=== PATIENT | female | born 1985 | race Caucasian/White ===

== ENCOUNTER → 2020-09-15 12:10 | Outpatient (BNVA) | payer OTHER, SELFPAY | PROVIDERS: Visit Provider Family Medicine | DX: R53.83 Other fatigue (principal); K05.219 Aggressive periodontitis, localized, unspecified severity | CPT/HCPCS: 82607; 83540; 84443 ==

== ENCOUNTER 2020-09-20 17:48 | Emergency (ER) | payer OTHER, SELFPAY ==
[2020-09-20] VITALS (25 sets, daily range): BP systolic 127–148; BP diastolic 76–97; PULSE 84–105; RESP 13–24; TEMP 36.6–37.1; O2SAT 91–100; BMI 29.2
--- NOTE | 2020-09-20 18:29 | XRR_ITS ---
PROCEDURE INFORMATION: Exam: XR Chest, 1 View Exam date and time: 09/20/2020 6:32 PM Age: 35 years old Clinical indication: Dyspnea; Additional info: Seizure TECHNIQUE: Imaging protocol: XR of the chest Views: 1 view. COMPARISON: No relevant prior studies available. FINDINGS: Lungs: There is interstitial prominence compatible with fibrosis, bronchitis, viral pneumonitis or mild interstitial edema. There is also mild hazy opacity in the lungs concerning for mild airspace edema or pneumonitis including COVID pneumonia. There is no lobar consolidation. Pleural space: Unremarkable. No pleural effusion. No pneumothorax. Heart/Mediastinum: Unremarkable. No cardiomegaly. Bones/joints: No acute abnormality. XR/XR chest 1V portable [id number] IMPRESSION: 1. There is interstitial prominence compatible with fibrosis, bronchitis, viral pneumonitis or mild interstitial edema. 2. There is also mild hazy opacity in the lungs concerning for mild airspace edema or pneumonitis including COVID pneumonia.
--- NOTE | 2020-09-20 18:30 | ECG_ITS ---
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
--- NOTE | 2020-09-20 18:54 | CTR_ITS ---
PROCEDURE INFORMATION: Exam: CT Head Without Contrast Exam date and time: 09/20/2020 7:41 PM Age: 35 years old Clinical indication: Injury or trauma; Blunt trauma (contusions or hematomas); With loss of consciousness; Loss of consciousness for 30 minutes or less; Patient HX: Syncope vs seizure w fall C/O BERRIOS and neck pain TECHNIQUE: Imaging protocol: Computed tomography of the head without contrast. Radiation optimization: All CT scans at this facility use at least one of these dose optimization techniques: automated exposure control; mA and/or kV adjustment per patient size (includes targeted exams where dose is matched to clinical indication); or iterative reconstruction. COMPARISON: No relevant prior studies available. RADIATION DOSE METRICS: Total DLP (mGy-cm): 753.5 FINDINGS: Brain: Normal. No hemorrhage. Unremarkable white matter. No mass effect. Cerebral ventricles: No ventriculomegaly. Bones/joints: Unremarkable. No acute fracture. Paranasal sinuses: There is mild mucosal thickening in the sinuses. No air-fluid levels. Mastoid air cells: Visualized mastoid air cells are well aerated. Soft tissues: Unremarkable. CT/CT head wo con* [id number] IMPRESSION: No acute intracranial abnormality. Radiation Dose CTDIVOL = (mGy): DLP = 753.5 (mGy-cm)
--- NOTE | 2020-09-20 18:54 | CTR_ITS ---
PROCEDURE INFORMATION: Exam: CT Cervical Spine Without Contrast Exam date and time: 09/20/2020 7:41 PM Age: 35 years old Clinical indication: Injury or trauma; Blunt trauma; Patient HX: Syncope vs seizure w fall C/O BERRIOS and neck pain; Additional info: Fall, neck pain TECHNIQUE: Imaging protocol: Computed tomography images of the cervical spine without contrast. Radiation optimization: All CT scans at this facility use at least one of these dose optimization techniques: automated exposure control; mA and/or kV adjustment per patient size (includes targeted exams where dose is matched to clinical indication); or iterative reconstruction. COMPARISON: No relevant prior studies available. RADIATION DOSE METRICS: Total DLP (mGy-cm): 532.44 FINDINGS: Bones/joints: No acute fracture. Normal alignment. Discs/Spinal canal/Neural foramina: No significant disc protrusion. No severe spinal canal stenosis. No significant neural foraminal narrowing. Soft tissues: Unremarkable. Lungs: Lung apices are normal. CT/CT cervical spin wo con* [id number] IMPRESSION: No acute findings. Radiation Dose CTDIVOL = (mGy): DLP = 532.44 (mGy-cm)
--- NOTE | 2020-09-20 19:09 | ED_ITS ---
HPI - Seizure General: Chief Complaint: Seizure Stated Complaint: seizure Time Seen by Provider: 09/20/20 18:14 Source: patient and family (spouse) Mode of arrival: ambulatory Limitations: no limitations History of Present Illness: HPI Narrative: Patient was at home doing laundry when she said that was last thing she recalls. Her spouse who is in the room stated that the children who run down to get him and when he arrived she was having a generalized tonic-clonic seizure. Whole episode lasted less than 1 minute and probably is more like 45 seconds. She has no prior history of seizures, has not been on well before today. No headache before no fever, no cough, no chest pain. MD complaint: seizure Onset (ago): hour(s) (1) Description of Episode: loss of consciousness and tonic-clonic movement Duration of episode: 45 -: second(s) Witnessed: Yes - by Bystander (spouse) Trauma: No Seizure History: No Place: Home Possible Precipitating Event: none Associated symptoms: Deny chest pain, chills, confusion, cough, diaphoresis, fever(s), anorexia, malaise, rash, short of breath or weakness Treatments prior to arrival: none Review of Systems General: Reports: 10 or more systems reviewed and unremarkable except in HPI and below Const: Denies: fever(s), chills, malaise or diaphoresis Eyes: Denies: change in vision or blurry vision ENMT: Denies: throat pain, enlarged tonsils, odynophagia, hoarseness, mouth pain or swelling of lips/tongue Card: Denies: chest pain Resp: Denies: dyspnea, productive cough or non-productive cough GI: Denies: abdominal pain, nausea or vomiting : Denies: flank pain, difficulty voiding, dysuria, urinary frequency, urinary urgency or urinary hesitancy Musc: Denies: neck pain, back pain or extremity swelling Skin/Breast: Denies: rash, pruritus or erythema Neuro: Denies: confusion Endo: Denies: polyuria, polydipsia or tired all the time PFSH ED PFSH: Medical History (Reviewed 09/20/20 @ 23:55 by Kar Castillo MD, [facility] Anxiety Binge eating disorder Depression Ovarian cyst PTSD (post-traumatic stress disorder) TMJ (dislocation of temporomandibular joint) Surgical History (Reviewed 09/20/20 @ 23:55 by Kar Castillo MD, [facility]) H/O: hysterectomy History of bowel resection History of ERCP History of hernia repair Hx of cholecystectomy Social History (Reviewed 09/20/20 @ 23:55 by Kar Castillo MD, [facility] Smoking and tobacco status: current every day smoker Marital status: / Physical Exam Const: COMMON NORMALS: no acute distress, average body habitus, patient oriented x3, no limitations, healthy appearing, alert and well nourished HENMT: COMMON NORMALS: normocephalic, atraumatic and moist oral mucous membranes HEAD & SCALP: normocephalic and atraumatic Eye: COMMON NORMALS: Equal, round and reactive pupils present, EOMs intact bilaterally, conjunctivae normal and no scleral icterus CONJUNCTIVA: Yes conjunctivae normal PUPIL: Yes Equal, round and reactive pupils present Neck/C-Spine: COMMON NORMALS: full ROM, supple, no meningeal signs, no JVD and No carotid bruits CERVICAL SPINE: Yes cervical ROM abnormal extension decreased, Yes pain with cervical ROM, No Cervical spine tenderness, Yes Paracervical muscle tenderness and Yes Paracervical spasm Chest: COMMONS NORMALS: normal inspection of the chest and normal palpation of entire chest wall Resp: COMMON NORMALS: normal respiratory effort, No retractions, No use of accessory muscles, clear to auscultation bilaterally and percussion normal AUSCULTATION: clear to auscultation bilaterally PERCUSSION: percussion normal Cardio: COMMON NORMALS: no JVD, regular rate, regular rhythm, S1 normal heart sound present, S2 normal heart sound present, No gallops present (Cardio), No clicks present (Cardio), No murmurs present (Cardio), No rub (Cardio) and Peripheral pulses 2+ throughout RATE: regular rate RHYTHM: regular rhythm HEART SOUNDS: S1 normal heart sound present and S2 normal heart sound present PERIPHERAL PULSES: Peripheral pulses 2+ throughout GI: COMMON NORMALS: Normal to inspection, nondistended, normoactive bowel sounds present, Soft to palpation, non-tender, No hepatosplenomegaly present, no masses and no bruits PALPATION: Yes Soft to palpation and Yes No hepatosplenomegaly present Extremity: COMMON NORMALS: normal to inspection, full ROM, capillary refill normal, no calf tenderness and no pedal edema Neuro: COMMON NORMALS: patient oriented x3 SENSORIUM/ORIENTATION: Yes alert MENINGEAL SIGNS: Yes no meningeal signs Skin: COMMON NORMALS: no rashes or lesions noted, no wounds, turgor normal, no jaundice, no petechiae and no mottling GENERAL SKIN EXAM: no rashes or lesions noted and turgor normal Course ED course: Patient who had a syncopal episode of seizure today that lasted less than a minute. Evaluation in the ED was unremarkable other than chest x- ray suggestive of viral pneumonia. A rapid Covid swab was negative, and a PCR test was sent out. She is discharged home with no new orders. Vital Signs: Vital signs: Vital Signs Temperature 98.7 F 09/20/20 22:34 Pulse Rate 84 09/20/20 22:34 Respiratory Rate 18 09/20/20 22:34 Blood Pressure 134/76 09/20/20 22:34 Pulse Oximetry 99 09/20/20 22:34 MDM - Seizure MDM Narrative: Medical decision making narrative: 35-year-old female patient who had a seizure earlier today. She does not have a seizure history and no repeat seizures. Evaluation in the ED was unremarkable. She is advised that for single seizure it is not recommended to start an tiepileptics or to do a big work-up. She is advised that she has repeated seizures she will require more investigations including EEG and possible antiepileptics. She had neck pain and a C-spine CT was negative for acute fracture or dislocation. Medical Records: Attestation: I reviewed the patient's medical records. Lab Data: Attestation: I reviewed the patient's lab results. Labs: Lab Results 09/20/20 09/20/20 09/20/20 Range/Units 19:07 19:07 20:00 WBC 8.2 (4.0-10.0) 10^3/ uL RBC 3.90 L (4.1-5.3) 10^6/u L Hgb 12.0 (11.5-15.3) g/dL Hct 35.8 L (37.0-47.0) % MCV 91.8 (81-99) fL MCH 30.8 (28.0-34.0) pg MCHC 33.5 (30.0-36.0) g/dL RDW 12.9 (12.1-15.1) % Plt Count 294 (130-400) 10^3/c mm MPV 10.1 (7.4-10.4) fL Neut % (Auto) 73.1 % Lymph % (Auto) 19.8 % [place] % (Auto) 6.1 % Eos % (Auto) 0.5 % Baso % (Auto) 0.4 % Neut # (Auto) 5.96 (1.8-7.7) 10^3/u L Lymph # (Auto) 1.6 (0.8-4.8) 10^3/u L [place] # (Auto) 0.5 (0.2-0.9) 10^3/u L Eos # (Auto) 0.0 (0.0-0.8) 10^3/u L Baso # (Auto) 0.0 (0.0-0.1) 10^3/u L Nucleated RBC % (a uto) 0 % Nucleated RBCs # 0.0 /100WBC Sodium 141 (136-145) mmol/L Potassium 3.7 (3.5-5.1) mmol/L Chloride 107 (98-107) mmol/L Carbon Dioxide 26 (22-29) mmol/L Anion Gap 11.7 (5-19) BUN 7 (6-20) mg/dL Creatinine 0.6 (0.5-0.9) mg/dL GFR Calculation 114.4 (90-130) mL/min Glucose 98 (65-115) mg/dL Calculated Osmolal ity 290 (285-295) mOsm/k g Calcium 9.0 (8.5-10.5) mg/dL Total Bilirubin 0.4 (0.15-1.2) mg/dL AST 30 (0-32) U/L ALT 31 (0-33) U/L Alkaline Phosphata se 67 (35-105) IU/L Creatine Kinase 100 (26-192) U/L C-Reactive Protein 0.7 (0.0-4.9) mg/L Total Protein 6.9 (6.6-8.7) g/dL Albumin 4.1 (3.5-5.2) g/dL Globulin 2.8 (1.3-4.6) g/dL Lipase 21 (13-60) U/L TSH 1.43 (0.27-4.20) uIU/ mL HCG, Qual Negative (Negative) Urine Color (Yellow) Urine Appearance (CLEAR) Urine pH (5-7) Ur Specific Gravit y (1.005-1.030) Urine Protein (Negative) Urine Glucose (UA) (Normal) Urine Ketones (Negative) Urine Blood (Negative) Urine Nitrate (Negative) Urine Bilirubin (Negative) Urine Urobilinogen (Negative) mg/dL Ur Leukocyte Celeste ase (Negative) Urine RBC (0-2) /hpf Urine WBC (0-5) /hpf Ur Squamous Epith Cells (0-5) /hpf Amorphous Sediment Urine Bacteria (NONE) /hpf Urine Opiates Scre en (Negative) ng/mL Ur Barbiturates Sc reen (Negative) ng/mL Ur Phencyclidine S crn (Negative) ng/mL Ur Amphetamines Sc reen (Negative) ng/mL U Benzodiazepines Scrn (Negative) ng/mL Urine Cocaine Scre en (Negative) ng/mL U Marijuana (THC) Screen (Negative) ng/mL Ethyl Alcohol < 10 (0-10) mg/dL SARS-CoV-2 Ag (Rap id) (Negative) 09/20/20 09/20/20 09/20/20 Range/Units 20:00 20:00 21:04 WBC (4.0-10.0) 10^3/ uL RBC (4.1-5.3) 10^6/u L Hgb (11.5-15.3) g/dL Hct (37.0-47.0) % MCV (81-99) fL MCH (28.0-34.0) pg MCHC (30.0-36.0) g/dL RDW (12.1-15.1) % Plt Count (130-400) 10^3/c mm MPV (7.4-10.4) fL Neut % (Auto) % Lymph % (Auto) % [place] % (Auto) % Eos % (Auto) % Baso % (Auto) % Neut # (Auto) (1.8-7.7) 10^3/u L Lymph # (Auto) (0.8-4.8) 10^3/u L [place] # (Auto) (0.2-0.9) 10^3/u L Eos # (Auto) (0.0-0.8) 10^3/u L Baso # (Auto) (0.0-0.1) 10^3/u L Nucleated RBC % (a uto) % Nucleated RBCs # /100WBC Sodium (136-145) mmol/L Potassium (3.5-5.1) mmol/L Chloride (98-107) mmol/L Carbon Dioxide (22-29) mmol/L Anion Gap (5-19) BUN (6-20) mg/dL Creatinine (0.5-0.9) mg/dL GFR Calculation (90-130) mL/min Glucose (65-115) mg/dL Calculated Osmolal ity (285-295) mOsm/k g Calcium (8.5-10.5) mg/dL Total Bilirubin (0.15-1.2) mg/dL AST (0-32) U/L ALT (0-33) U/L Alkaline Phosphata se (35-105) IU/L Creatine Kinase (26-192) U/L C-Reactive Protein (0.0-4.9) mg/L Total Protein (6.6-8.7) g/dL Albumin (3.5-5.2) g/dL Globulin (1.3-4.6) g/dL Lipase (13-60) U/L TSH (0.27-4.20) uIU/ mL HCG, Qual (Negative) Urine Color Yellow (Yellow) Urine Appearance Hazy A (CLEAR) Urine pH 6 (5-7) Ur Specific Gravit y 1.020 (1.005-1.030) Urine Protein Neg (Negative) Urine Glucose (UA) Norm (Normal) Urine Ketones Negative (Negative) Urine Blood Neg (Negative) Urine Nitrate Negative (Negative) Urine Bilirubin Neg (Negative) Urine Urobilinogen Norm (Negative) mg/dL Ur Leukocyte Celeste ase Negative (Negative) Urine RBC 0-4 H (0-2) /hpf Urine WBC None (0-5) /hpf Ur Squamous Epith Cells 5-10 H (0-5) /hpf Amorphous Sediment Not Reportable Urine Bacteria 1+ H (NONE) /hpf Urine Opiates Scre en Negative (Negative) ng/mL Ur Barbiturates Sc reen Negative (Negative) ng/mL Ur Phencyclidine S crn Negative (Negative) ng/mL Ur Amphetamines Sc reen Negative (Negative) ng/mL U Benzodiazepines Scrn Positive H (Negative) ng/mL Urine Cocaine Scre en Negative (Negative) ng/mL U Marijuana (THC) Screen Positive H (Negative) ng/mL Ethyl Alcohol (0-10) mg/dL SARS-CoV-2 Ag (Rap id) Negative (Negative) Imaging Data^: Other CT: Radiologist's impression: [address] [address] [address] Scan Report Signed Patient: Meera Guevara #: [id number] : 1985Acct#:[id number] Age/Sex: 35 / FADM Date: 09/20/20 Loc: ERRoom/Bed: Attending Dr: Ordering Provider/Ordering MD: Kar Castillo MD, [facility] Date of Service: 09/20/20 Procedure(s): CT cervical spin wo con* [id number] Accession Number(s): [id number] Report Number: [id number] PROCEDURE INFORMATION: Exam: CT Cervical Spine Without Contrast Exam date and time: 09/20/2020 7:41 PM Age: 35 years old Clinical indication: Injury or trauma; Blunt trauma; Patient HX: Syncope vs seizure w fall C/O BERRIOS and neck pain; Additional info: Fall, neck pain TECHNIQUE: Imaging protocol: Computed tomography images of the cervical spine without contrast. Radiation optimization: All CT scans at this facility use at least one of these dose optimization techniques: automated exposure control; mA and/or kV adjustment per patient size (includes targeted exams where dose is matched to clinical indication); or iterative reconstruction. COMPARISON: No relevant prior studies available. RADIATION DOSE METRICS: Total DLP (mGy-cm): 532.44 FINDINGS: Bones/joints: No acute fracture. Normal alignment. Discs/Spinal canal/Neural foramina: No significant disc protrusion. No severe spinal canal stenosis. No significant neural foraminal narrowing. Soft tissues: Unremarkable. Lungs: Lung apices are normal. CT/CT cervical spin wo con* [id number] IMPRESSION: No acute findings. Radiation Dose CTDIVOL = (mGy): DLP = 532.44 (mGy-cm) Dictated By:Kyung Wong Signed By:Tomanek,JoanSigned Date/Time:09/20/202006 DD/ 05 CXR: Radiologist's impression: [facility] [address] [place] [address] XRay Report Signed Patient: Meera Guevara #: [id number] : 1985Acct#:[id number] Age/Sex: 35 / FADM Date: 09/20/20 Loc: ERRoom/Bed: Attending Dr: Ordering Provider/Ordering MD: Kar Castillo MD, [facility] Date of Service: 09/20/20 Procedure(s): XR chest 1V portable [id number] Accession Number(s): [id number] Report Number: [id number] PROCEDURE INFORMATION: Exam: XR Chest, 1 View Exam date and time: 09/20/2020 6:32 PM Age: 35 years old Clinical indication: Dyspnea; Additional info: Seizure TECHNIQUE: Imaging protocol: XR of the chest Views: 1 view. COMPARISON: No relevant prior studies available. FINDINGS: Lungs: There is interstitial prominence compatible with fibrosis, bronchitis, viral pneumonitis or mild interstitial edema. There is also mild hazy opacity in the lungs concerning for mild airspace edema or pneumonitis including COVID pneumonia. There is no lobar consolidation. Pleural space: Unremarkable. No pleural effusion. No pneumothorax. Heart/Mediastinum: Unremarkable. No cardiomegaly. Bones/joints: No acute abnormality. XR/XR chest 1V portable [id number] IMPRESSION: 1. There is interstitial prominence compatible with fibrosis, bronchitis, viral pneumonitis or mild interstitial edema. 2. There is also mild hazy opacity in the lungs concerning for mild airspace edema or pneumonitis including COVID pneumonia. Dictated By:Kyung Wong Signed By:Rachel Wong Date/Time:09/20/20 191 DD/ 190 CT Head: Radiologist's impression: [facility] [address] [place] [address]. [place] [address] CT Scan Report Signed Patient: Meera Guevara #: [id number] : 1985Acct#:[id number] Age/Sex: 35 / FADM Date: 09/20/20 Loc: ERRoom/Bed: Attending Dr: Ordering Provider/Ordering MD: Kar Castillo MD, [facility] Date of Service: 09/20/20 Procedure(s): CT head wo con* [id number] Accession Number(s): [id number] Report Number: [id number] PROCEDURE INFORMATION: Exam: CT Head Without Contrast Exam date and time: 09/20/2020 7:41 PM Age: 35 years old Clinical indication: Injury or trauma; Blunt trauma (contusions or hematomas); With loss of consciousness; Loss of consciousness for 30 minutes or less; Patient HX: Syncope vs seizure w fall C/O BERRIOS and neck pain TECHNIQUE: Imaging protocol: Computed tomography of the head without contrast. Radiation optimization: All CT scans at this facility use at least one of these dose optimization techniques: automated exposure control; mA and/or kV adjustment per patient size (includes targeted exams where dose is matched to clinical indication); or iterative reconstruction. COMPARISON: No relevant prior studies available. RADIATION DOSE METRICS: Total DLP (mGy-cm): 753.5 FINDINGS: Brain: Normal. No hemorrhage. Unremarkable white matter. No mass effect. Cerebral ventricles: No ventriculomegaly. Bones/joints: Unremarkable. No acute fracture. Paranasal sinuses: There is mild mucosal thickening in the sinuses. No air-fluid levels. Mastoid air cells: Visualized mastoid air cells are well aerated. Soft tissues: Unremarkable. CT/CT head wo con* [id number] IMPRESSION: No acute intracranial abnormality. Radiation Dose CTDIVOL = (mGy): DLP = 753.5 (mGy-cm) Dictated By:Kyung Wong Signed By:Rachel Wong Date/Time:09/20/201999 DD/ 58 EKG Data^: EKG 1: Attestation: I personally reviewed and interpreted this EKG as follows: EKG interpretation date: 09/20/20 EKG interpretation time: 19:53 Prior EKG tracings: not available for review Interpretation: Normal sinus rhythm. Heart rate 90 bpm. Normal axis. No ST changes. Discharge Plan Discharge Patient Disposition: Home Clinical Impression: Seizure Condition: Stable Prescriptions: Continued dextroamphetamine-amphetamine [Adderall] 20 mg tablet 20 mg PO BID 30 Days Qty: 60 RF: 0 amoxicillin 875 mg tablet 875 mg PO BID@ RF: 0 prazosin 2 mg capsule 2 mg PO BID@ RF: 0 Wellbutrin XL 300 mg tablet extended release 24 hr 300 mg PO QAM@0900 RF: 0 Tylenol 325 mg Tablet 325 mg PO QID PRN (Reason: Pain) RF: 0 ibuprofen 200 mg Tablet 200 mg PO Q6H PRN (Reason: Pain) RF: 0 Discharge Orders: Discharge ED (Routine); Ordered 09/20/20 Ordered By: Kar Castillo Discharge Diet: As Directed Discharge Activity: Resume usual activity Patient Instructions: Seizures Activity Restrictions/Additional Instructions: Return for any new or worsening symptoms. Follow-up with your primary care provider within 3 days. If you have any repeat seizures you may need to be started on seizure medica tions and have further test done. You will be contacted with the results of your Covid test. Coding Level of Care Code ED Hog Dropper for Ramana Sheehan
[2020-09-20 19:30] LABS: Basophils % 0.4 %; Eosinophils % 0.5 %; Hematocrit 35.8 % (37.0-47.0); Lymphocytes # 1.6 10^3/uL (0.8-4.8); Lymphocytes % 19.8 %; Mean Corpuscular HGB Conc 33.5 g/dL (30.0-36.0); Mean Corpuscular Hemoglobin 30.8 pg (28.0-34.0); Mean Corpuscular Volume 91.8 fL (81-99); Mean Platelet Volume 10.1 fL (7.4-10.4); Monocytes # 0.5 10^3/uL (0.2-0.9); Monocytes % 6.1 %; Neutrophils # 5.96 10^3/uL (1.8-7.7); Neutrophils % 73.1 %; Nucleated Red Blood Cells % 0 %; Platelet Count 294 10^3/cmm (130-400); Red Cell Distribution Width 12.9 % (12.1-15.1); White Blood Count 8.2 10^3/uL (4.0-10.0)
--- NOTE | 2020-09-20 19:46 | PC.NURSE ---
Pt return from CT
--- NOTE | 2020-09-20 20:02 | PC.NURSE ---
Received report from VITA Pablo
[2020-09-20 20:26] LABS: Alanine Aminotransferase 31 U/L (0-33); Albumin Level 4.1 g/dL (3.5-5.2); Alkaline Phosphatase 67 IU/L (35-105); Anion Gap 11.7 (5-19); Aspartate Amino Transferase 30 U/L (0-32); Blood Urea Nitrogen 7 mg/dL (6-20); C Reactive Protein 0.7 mg/L (0.0-4.9); Carbon Dioxide 26 mmol/L (22-29); Chloride 107 mmol/L (98-107); Creatine Phosphokinase 100 U/L (26-192); Globulin 2.8 g/dL (1.3-4.6); Glomerular Filtration Rate 114.4 mL/min (90-130); Glucose 98 mg/dL (65-115); Lipase 21 U/L (13-60); Osmolality Calculated 290 mOsm/kg (285-295); Potassium 3.7 mmol/L (3.5-5.1); Sodium 141 mmol/L (136-145); Thyroid Stimulating Hormone 1.43 uIU/mL (0.27-4.20); Total Bilirubin 0.4 mg/dL (0.15-1.2); Total Protein 6.9 g/dL (6.6-8.7)
[2020-09-20 20:58] LABS: HCG Qualitative Urine. Negative (Negative)
[2020-09-20 21:00] LABS: Add Urine Microscopic? YES; Bilirubin Urine Neg (Negative); Blood Urine Neg (Negative); Glucose Urine UA Norm (Normal); Ketones Urine Negative (Negative); Leukocyte Esterase Urine Negative (Negative); Nitrate Urine Negative (Negative); Protein Urine Neg (Negative); Urine Appearance Hazy (CLEAR); Urine Color Yellow (Yellow); Urobilinogen Urine Norm (Negative); pH Urine 6 (5-7)
[2020-09-20 21:01] LABS: Amphetamines Screen Urine Negative (Negative); Barbiturates Screen Urine Negative (Negative); Benzodiazepines Screen Urine Positive (Negative); Cocaine Screen Urine Negative (Negative); Opiate Screen Urine Negative (Negative); PCP Screen Urine Negative (Negative); THC Screen Urine Positive (Negative)
[2020-09-20 21:02] LABS: Alcohol Level < 10 mg/dL (0-10)
[2020-09-20] MEDS: ketorolac 30 mg/mL INJ IVP (21:25)
[2020-09-20 21:44] LABS: SARS Covid-2 Antigen Negative (Negative)
[2020-09-20 21:48] LABS: RBC Urine 0-4 /hpf (0-2)
[2020-09-20 21:49] LABS: Add Urine Culture? No; Bacteria Urine 1+ /hpf
--- NOTE | 2020-09-20 21:58 | PC.NURSE ---
Pt requested food. No noted seizures since admission. at bedside
--- NOTE | 2020-09-20 22:21 | PC.NURSE ---
Pt stated small amount of relief with Toradol. Pt stated it never works . Notified provider, received orders for Tylenol and okay to be discharge, Pt stated she is ready to go home
[2020-09-20] MEDS: acetaminophen 500 mg Tablet 1000 MG PO (22:27)
[2020-09-22 09:01] LABS: Coronavirus Lab Test PTC Negative
--- NOTE | 2020-09-22 18:30 | PC.NURSE ---
I left a message on pts phone to return a call to get her covid results
--- NOTE | 2020-09-23 08:51 | PC.NURSE ---
Pt called and notified of negative COVID result.
== END 2020-09-20 22:35 | disposition home or self-care (01) ==
PROVIDERS: Emergency Provider Family Medicine
DX: R56.9 Unspecified convulsions (principal); F17.210 Nicotine dependence, cigarettes, uncomplicated
CPT/HCPCS: 12345; 70450; 71045; 72125; 80053; 80306; 80307; 81001; 81025; 82550; 83690; 84443; 85025; 86140; 87426; 87635; 93005; 96374; 99284; J1885

== ENCOUNTER 2021-03-28 00:50 | Emergency (ER) | payer OTHER, SELFPAY ==
[2021-03-28 01:02] VITALS: BP 152/96; PULSE 110; RESP 18; TEMP 36.6; O2SAT 97; BMI 28.3
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
[2021-03-28] MEDS: naproxen 500 mg Tablet PO (01:51)
[2021-03-28 01:55] VITALS: PULSE 109
[2021-03-28 01:57] VITALS: BP 152/96; PULSE 109; RESP 19; O2SAT 97
== END 2021-03-28 01:57 | disposition home or self-care (01) ==
PROVIDERS: Emergency Provider Nurse Practitioner Family; PCP Family Medicine
DX: T80.89XA Other complications following infusion, transfusion and therapeutic injection, initial encounter (principal); F17.210 Nicotine dependence, cigarettes, uncomplicated
CPT/HCPCS: 99283

== ENCOUNTER 2021-04-13 22:26 | Emergency (ER) | payer OTHER, SELFPAY ==
[2021-04-13 22:38] VITALS: BP 148/83; PULSE 77; RESP 18; TEMP 36.6; O2SAT 97; BMI 26.4
--- NOTE | 2021-04-13 22:47 | W.ED.FEMALGU ---
HPI - Female Genitourinary General: Chief complaint: Urogenital-Female Stated complaint: PELVIC PAIN/DISCHARGE Time Seen by Provider: 04/13/21 22:41 Source: patient Mode of arrival: ambulatory Limitations: no limitations History of Present Illness: HPI Narrative: 36-year-old female states that over the last 3 to 4 weeks she has been having a yellow S vaginal discharge and also some pain with intercourse. She states she is concerned she may have an STD. Denies any fevers. Denies any abdominal pain currently. Denies any worsening improving factors. Associated symptoms: Reports vaginal discharge; Deny abdominal pain, headache(s) or nausea Review of Systems Const: Denies: fever(s), chills, body aches or change in appetite Eyes: Denies: blurry vision or eye discomfort ENMT: Denies: throat pain or dental pain Card: Denies: chest pain Resp: Denies: dyspnea GI: Denies: abdominal pain, nausea, vomiting or diarrhea : Reports: vaginal discharge and pelvic pain Musc: Denies: neck pain or back pain Skin/Breast: Denies: rash Neuro: Denies: headache(s) Psych: Denies: depression [place]/Lymph: Denies: easy bruising All/Imm: Denies: urticaria PFSH ED PFSH: Medical History Anxiety Binge eating disorder Depression Ovarian cyst PTSD (post-traumatic stress disorder) TMJ (dislocation of temporomandibular joint) Surgical History H/O: hysterectomy History of bowel resection History of ERCP History of hernia repair Hx of cholecystectomy Social History Smoking and tobacco status: current every day smoker Marital status: / Physical Exam Const: COMMON NORMALS: no acute distress, patient oriented x3 and healthy appearing HENMT: COMMON NORMALS: normocephalic and atraumatic HEAD & SCALP: normocephalic and atraumatic Eye: COMMON NORMALS: Equal, round and reactive pupils present and EOMs intact bilaterally PUPIL: Yes Equal, round and reactive pupils present Neck/C-Spine: COMMON NORMALS: full ROM and supple Chest: COMMONS NORMALS: normal inspection of the chest and normal palpation of entire chest wall Resp: COMMON NORMALS: normal respiratory effort, No retractions, No use of accessory muscles and clear to auscultation bilaterally AUSCULTATION: clear to auscultation bilaterally Cardio: COMMON NORMALS: regular rate, regular rhythm and No murmurs present (Cardio) RATE: regular rate RHYTHM: regular rhythm GI: COMMON NORMALS: Normal to inspection, nondistended, normoactive bowel sounds present, Soft to palpation, non-tender and no masses PALPATION: Yes Soft to palpation : OTHER: Cervicitis noted with copious yellow-greenish discharge Extremity: COMMON NORMALS: normal to inspection and full ROM Neuro: COMMON NORMALS: patient oriented x3, moves all extremities and no focal motor deficits Psych: COMMON NORMALS: mental status grossly normal, Normal thought process present and cooperative THOUGHT PROCESS: Normal thought process present Skin: COMMON NORMALS: no rashes or lesions noted and no wounds GENERAL SKIN EXAM: no rashes or lesions noted Course Vital Signs: Vital signs: Vital Signs Temperature 97.8 F 04/13/21 22:38 Pulse Rate 77 04/13/21 22:38 Respiratory Rate 18 04/13/21 22:38 Blood Pressure 148/83 04/13/21 22:38 Pulse Oximetry 97 04/13/21 22:38 MDM - Female MDM Narrative: Medical decision making narrative: Patient presents here with STD. She had some slight cervical motion tenderness so we will treat with doxycycline for a week. She also has trichomonas we will treat with Flagyl. Patient had Rocephin azithromycin in the ER. She is stable for discharge and return if worsening. She understands agrees to plan. Discharge Plan Discharge Patient Disposition: Home Clinical Impression: STD (female) Condition: Stable Prescriptions: New doxycycline hyclate 100 mg tablet 100 mg PO BID 10 Days Qty: 20 RF: 0 Flagyl 500 mg tablet 500 mg PO Q8H 7 Days Qty: 21 RF: 0 No Action oxycodone-acetaminophen 7.5-325 mg tablet 1 tab PO TID PRN (Reason: pain) 10 Days Qty: 30 RF: 0 dextroamphetamine-amphetamine [Adderall] 20 mg tablet 20 mg PO BID 30 Days Qty: 60 RF: 0 baclofen 10 mg tablet 10 mg PO .qhs Qty: 30 RF: 3 bupropion HCl [Wellbutrin XL] 150 mg tablet extended release 24 hr 150 mg PO QAM Qty: 30 RF: 3 fluoxetine [Prozac] 20 mg capsule 20 mg PO DAILY Qty: 30 RF: 2 ropinirole 0.5 mg tablet 0.5 mg PO .qhs Qty: 30 RF: 1 prazosin 2 mg capsule See Rx Instructions .ROUTE .COMPLEX Qty: 180 RF: 0 amoxicillin 875 mg tablet 875 mg PO BID@ RF: 0 Tylenol 325 mg Tablet 325 mg PO QID PRN (Reason: Pain) RF: 0 ibuprofen 200 mg Tablet 200 mg PO Q6H PRN (Reason: Pain) RF: 0 naproxen 500 mg tablet 500 mg PO BID Qty: 20 RF: 0 Discharge Orders: Discharge ED (Routine); Ordered 04/13/21 Ordered By: Oscar Leroy Referrals: Dolores Becerra MD [Primary Care Provider] - 1-3 days Discharge Diet: Advance as tolerated Discharge Activity: Resume usual activity Patient Instructions: Opioid Safety Coding Level of Care Code ED Supervisor [employer] Production for Ramana Fwd Exam Comprehensive
[2021-04-13] MEDS: HYDROcodone-acetaminophen 5-325 mg Tablet 1 TAB PO (23:35)
[2021-04-13] MEDS: azithromycin 250 mg Tablet 1000 MG PO (23:35)
== END 2021-04-13 23:48 | disposition home or self-care (01) ==
PROVIDERS: Emergency Provider Emergency Medicine; PCP Family Medicine
DX: A64 Unspecified sexually transmitted disease (principal); F17.210 Nicotine dependence, cigarettes, uncomplicated
CPT/HCPCS: 87210; 87491; 87591; 96372; 99283; J0696; Q0144

== ENCOUNTER 2021-04-22 23:47 | Emergency (ER) | payer OTHER, SELFPAY ==
[2021-04-22 23:57] VITALS: BP 134/85; PULSE 110; RESP 20; TEMP 37.9; O2SAT 98; BMI 26.4
--- NOTE | 2021-04-22 23:57 | XRR_ITS ---
PROCEDURE INFORMATION: Exam: XR Chest Exam date and time: 04/22/2021 11:57 PM Age: 36 years old Clinical indication: Shortness of breath; Additional info: Covid TECHNIQUE: Imaging protocol: XR of the chest. Views: 1 view. COMPARISON: CR XR chest 1V portable [id number] 09/20/2020 6:36 PM FINDINGS: Lungs: Unremarkable. No consolidation. Pleural spaces: Unremarkable. No pleural effusion. No pneumothorax. Heart/Mediastinum: Unremarkable. No cardiomegaly. Bones/joints: Unremarkable. XR/XR chest 1V portable [id number] IMPRESSION: No acute findings.
[2021-04-23 01:16] LABS: SARS Covid-2 Antigen Positive (Negative)
--- NOTE | 2021-04-23 01:34 | ED_ITS ---
Documented by User: YASMIN Denson 04/23/21 16:59 HPI - Fever General: Chief Complaint: Fever Stated Complaint: Fever\Muscle Aches Poss Covid in Covid Room Time Seen by Provider: 04/23/21 01:31 History of Present Illness: HPI Narrative: 36-year-old female comes in today for complaints of fever and general body aches. Patient reports started with cough yesterday and today started running a fever with significant body aches and occasional shortness of breath. Patient is a homeless patient. Patient reports that she has been walking a lot. Patient reports darkening of her urine. Patient had a Covid test done in the waiting room that has come back positive. Patient has a history of restless legs, ADHD, substance abuse. Review of Systems General: Reports: 10 or more systems reviewed and unremarkable except in HPI and below Const: Reports: fever(s) Resp: Reports: dyspnea and non-productive cough PFSH ED PFSH: Medical History Anxiety Binge eating disorder Depression Ovarian cyst PTSD (post-traumatic stress disorder) TMJ (dislocation of temporomandibular joint) Surgical History H/O: hysterectomy History of bowel resection History of ERCP History of hernia repair Hx of cholecystectomy Social History Smoking and tobacco status: current every day smoker Marital status: / Physical Exam Const: COMMON NORMALS: no acute distress and patient oriented x3 GENERAL APPEARANCE: cooperative HENMT: COMMON NORMALS: normocephalic and Normal external nose present HEAD & SCALP: normal to inspection and normocephalic NOSE: Normal external nose p resent MOUTH: Normal oral and palatal mucosa present Eye: GENERAL EYE: appearance normal, both eyes and all related structures Neck/C-Spine: COMMON NORMALS: full ROM Chest: COMMONS NORMALS: normal inspection of the chest Resp: COMMON NORMALS: normal respiratory effort and clear to auscultation bilaterally EFFORT & INSPECTION: Yes able to speak in complete sentences AUSCULTATION: clear to auscultation bilaterally Cardio: COMMON NORMALS: regular rate and regular rhythm RATE: regular rate RHYTHM: regular rhythm GI: COMMON NORMALS: non-tender Back/Pelvis: COMMON NORMALS: thoracic and lumbar spine normal to inspection Extremity: COMMON NORMALS: normal to inspection Neuro: COMMON NORMALS: patient oriented x3 and moves all extremities Psych: COMMON NORMALS: mental status grossly normal and cooperative Skin: COMMON NORMALS: no rashes or lesions noted GENERAL SKIN EXAM: no rashes or lesions noted Course ED course: 0300, awaiting lab results. Patient is resting well. COVID-19 test was positive. We are rechecking labs to make sure that patient does not have significant dehydration. Patient has been given acetaminophen for fever and pain. Patient was encouraged to drink plenty of fluids. Dr. Leroy will assume care at my end of shift. Vital Signs: Vital signs: Vital Signs Temperature 98.4 F 04/23/21 03:41 Pulse Rate 114 H 04/23/21 03:41 Respiratory Rate 20 H 04/23/21 03:41 Blood Pressure 127/84 04/23/21 03:41 Pulse Oximetry 98 04/23/21 03:41 MDM - Fever MDM Narrative: Medical decision making narrative: Patient comes in tonight for complaints of general malaise, being overheated, fever, body aches. Patient also reports occasional cough. On exam lungs are clear to auscultation. Vital signs note a mild elevation in temperature 100.2. Pulse rate is slightly high at 110. Oxygen saturation was normal. And normal blood pressure 134/85. Differential diagnosis includes viral syndrome, COVID-19, heat exhaustion. Lab Data: Labs: Lab Results 04/23/21 04/23/21 04/23/21 Range/Units 00:35 02:20 02:20 WBC 5.4 (4.0-10.0) 10^3/ uL RBC 4.40 (4.1-5.3) 10^6/u L Hgb 13.2 (11.5-15.3) g/dL Hct 39.5 (37.0-47.0) % MCV 89.8 (81-99) fL MCH 30.0 (28.0-34.0) pg MCHC 33.4 (30.0-36.0) g/dL RDW 12.3 (12.1-15.1) % Plt Count 221 (130-400) 10^3/c mm MPV 11.2 H (7.4-10.4) fL Neut % (Auto) 59.7 % Lymph % (Auto) 24.7 % [place] % (Auto) 13.2 % Eos % (Auto) 1.1 % Baso % (Auto) 0.7 % Neut # (Auto) 3.22 (1.8-7.7) 10^3/u L Lymph # (Auto) 1.3 (0.8-4.8) 10^3/u L [place] # (Auto) 0.7 (0.2-0.9) 10^3/u L Eos # (Auto) 0.1 (0.0-0.8) 10^3/u L Baso # (Auto) 0.0 (0.0-0.1) 10^3/u L Nucleated RBC % (a uto) 0 % Nucleated RBCs # 0.0 /100WBC Sodium 137 (136-145) mmol/L Potassium 3.9 (3.5-5.1) mmol/L Chloride 105 (98-107) mmol/L Carbon Dioxide 23 (22-29) mmol/L Anion Gap 12.9 (5-19) BUN 10 (6-20) mg/dL Creatinine 0.8 (0.5-0.9) mg/dL GFR Calculation 81.6 L (90-130) mL/min Glucose 95 (65-115) mg/dL Calculated Osmolal ity 283 L (285-295) mOsm/k g Calcium 8.7 (8.5-10.5) mg/dL Total Bilirubin 0.2 (0.15-1.2) mg/dL AST 13 (0-32) U/L ALT 11 (0-33) U/L Alkaline Phosphata se 84 (35-105) IU/L Creatine Kinase 64 (26-192) U/L Total Protein 6.8 (6.6-8.7) g/dL Albumin 3.8 (3.5-5.2) g/dL Globulin 3.0 (1.3-4.6) g/dL SARS-CoV-2 Ag (Rap id) Positive H (Negative) Discharge Plan Discharge Patient Disposition: Home Clinical Impression: COVID-19 Condition: Stable Prescriptions: No Action oxycodone-acetaminophen 7.5-325 mg tablet 1 tab PO TID PRN (Reason: pain) 10 Days Qty: 30 RF: 0 dextroamphetamine-amphetamine [Adderall] 20 mg tablet 20 mg PO BID 30 Days Qty: 60 RF: 0 baclofen 10 mg tablet 10 mg PO .qhs Qty: 30 RF: 3 bupropion HCl [Wellbutrin XL] 150 mg tablet extended release 24 hr 150 mg PO QAM Qty: 30 RF: 3 fluoxetine [Prozac] 20 mg capsule 20 mg PO DAILY Qty: 30 RF: 2 ropinirole 0.5 mg tablet 0.5 mg PO .qhs Qty: 30 RF: 1 prazosin 2 mg capsule See Rx Instructions .ROUTE .COMPLEX Qty: 180 RF: 0 amoxicillin 875 mg tablet 875 mg PO BID@ RF: 0 Tylenol 325 mg Tablet 325 mg PO QID PRN (Reason: Pain) RF: 0 ibuprofen 200 mg Tablet 200 mg PO Q6H PRN (Reason: Pain) RF: 0 doxycycline hyclate 100 mg tablet 100 mg PO BID 10 Days Qty: 20 RF: 0 naproxen 500 mg tablet 500 mg PO BID Qty: 20 RF: 0 Discharge Orders: Discharge ED (Routine); Ordered 04/23/21 Ordered By: Oscar Leroy Referrals: Dolores Becerra MD [Primary Care Provider] - Discharge Diet: Usual diet Discharge Activity: Increase activity as tolerated Patient Instructions: Viral Syndrome (ED) Activity Restrictions/Additional Instructions: Drink plenty of fluids. Use acetaminophen and ibuprofen for pain and fever. It is important to stay well-hydrated. Follow-up with primary care as needed. R eturn to the emergency department for worsening symptoms or new concerns. Coding Level of Care Code ED Layout Man for Chg Fwd Exam Comprehensive Documented by User: Oscar Leroy MD 04/23/21 03:03 HPI - Fever General: Chief Complaint: Fever Stated Complaint: Fever\Muscle Aches Poss Covid in Covid Room Time Seen by Provider: 04/23/21 01:31 [facility] ED PFSH: Medical History Anxiety Binge eating disorder Depression Ovarian cyst PTSD (post-traumatic stress disorder) TMJ (dislocation of temporomandibular joint) Surgical History H/O: hysterectomy History of bowel resection History of ERCP History of hernia repair Hx of cholecystectomy Social History Smoking and tobacco status: current every day smoker Marital status: / Course Vital Signs: Vital signs: Vital Signs Temperature 98.4 F 04/23/21 03:41 Pulse Rate 114 H 04/23/21 03:41 Respiratory Rate 20 H 04/23/21 03:41 Blood Pressure 127/84 04/23/21 03:41 Pulse Oximetry 98 04/23/21 03:41 MDM - Fever MDM Narrative: Medical decision making narrative: Patient presents with COVID- 19. She is well-appearing here in no distress and x-ray is normal. She is stable for discharge is to follow-up PCP and return if worsening. Lab Data: Labs: Lab Results 04/23/21 04/23/21 04/23/21 Range/Units 00:35 02:20 02:20 WBC 5.4 (4.0-10.0) 10^3/ uL RBC 4.40 (4.1-5.3) 10^6/u L Hgb 13.2 (11.5-15.3) g/dL Hct 39.5 (37.0-47.0) % MCV 89.8 (81-99) fL MCH 30.0 (28.0-34.0) pg MCHC 33.4 (30.0-36.0) g/dL RDW 12.3 (12.1-15.1) % Plt Count 221 (130-400) 10^3/c mm MPV 11.2 H (7.4-10.4) fL Neut % (Auto) 59.7 % Lymph % (Auto) 24.7 % [place] % (Auto) 13.2 % Eos % (Auto) 1.1 % Baso % (Auto) 0.7 % Neut # (Auto) 3.22 (1.8-7.7) 10^3/u L Lymph # (Auto) 1.3 (0.8-4.8) 10^3/u L [place] # (Auto) 0.7 (0.2-0.9) 10^3/u L Eos # (Auto) 0.1 (0.0-0.8) 10^3/u L Baso # (Auto) 0.0 (0.0-0.1) 10^3/u L Nucleated RBC % (a uto) 0 % Nucleated RBCs # 0.0 /100WBC Sodium 137 (136-145) mmol/L Potassium 3.9 (3.5-5.1) mmol/L Chloride 105 (98-107) mmol/L Carbon Dioxide 23 (22-29) mmol/L Anion Gap 12.9 (5-19) BUN 10 (6-20) mg/dL Creatinine 0.8 (0.5-0.9) mg/dL GFR Calculation 81.6 L (90-130) mL/min Glucose 95 (65-115) mg/dL Calculated Osmolal ity 283 L (285-295) mOsm/k g Calcium 8.7 (8.5-10.5) mg/dL Total Bilirubin 0.2 (0.15-1.2) mg/dL AST 13 (0-32) U/L ALT 11 (0-33) U/L Alkaline Phosphata se 84 (35-105) IU/L Creatine Kinase 64 (26-192) U/L Total Protein 6.8 (6.6-8.7) g/dL Albumin 3.8 (3.5-5.2) g/dL Globulin 3.0 (1.3-4.6) g/dL SARS-CoV-2 Ag (Rap id) Positive H (Negative) Discharge Plan Discharge Patient Disposition: Home Clinical Impression: COVID-19 Condition: Stable Prescriptions: No Action oxycodone-acetaminophen 7.5-325 mg tablet 1 tab PO TID PRN (Reason: pain) 10 Days Qty: 30 RF: 0 dextroamphetamine-amphetamine [Adderall] 20 mg tablet 20 mg PO BID 30 Days Qty: 60 RF: 0 baclofen 10 mg tablet 10 mg PO .qhs Qty: 30 RF: 3 bupropion HCl [Wellbutrin XL] 150 mg tablet extended release 24 hr 150 mg PO QAM Qty: 30 RF: 3 fluoxetine [Prozac] 20 mg capsule 20 mg PO DAILY Qty: 30 RF: 2 ropinirole 0.5 mg tablet 0.5 mg PO .qhs Qty: 30 RF: 1 prazosin 2 mg capsule See Rx Instructions .ROUTE .COMPLEX Qty: 180 RF: 0 amoxicillin 875 mg tablet 875 mg PO BID@ RF: 0 Tylenol 325 mg Tablet 325 mg PO QID PRN (Reason: Pain) RF: 0 ibuprofen 200 mg Tablet 200 mg PO Q6H PRN (Reason: Pain) RF: 0 doxycycline hyclate 100 mg tablet 100 mg PO BID 10 Days Qty: 20 RF: 0 naproxen 500 mg tablet 500 mg PO BID Qty: 20 RF: 0 Discharge Orders: Discharge ED (Routine); Ordered 04/23/21 Ordered By: Oscar Leroy Referrals: Dolores Becerra MD [Primary Care Provider] - Discharge Diet: Usual diet Discharge Activity: Increase activity as tolerated Patient Instructions: Viral Syndrome (ED) Activity Restrictions/Additional Instructions: Drink plenty of fluids. Use acetaminophen and ibuprofen for pain and fever. It is important to stay well-hydrated. Follow-up with primary care as needed. Return to the emergency department for worsening symptoms or new concerns. Coding Level of Care Code ED Layout Man for Ramana Sheehan Exam Comprehensive
[2021-04-23] MEDS: acetaminophen 500 mg Tablet 1000 MG PO (02:37)
[2021-04-23 02:53] LABS: Basophils % 0.7 %; Eosinophils # 0.1 10^3/uL (0.0-0.8); Eosinophils % 1.1 %; Hematocrit 39.5 % (37.0-47.0); Hemoglobin 13.2 g/dL (11.5-15.3); Lymphocytes # 1.3 10^3/uL (0.8-4.8); Lymphocytes % 24.7 %; Mean Corpuscular HGB Conc 33.4 g/dL (30.0-36.0); Mean Corpuscular Volume 89.8 fL (81-99); Mean Platelet Volume 11.2 fL (7.4-10.4); Monocytes # 0.7 10^3/uL (0.2-0.9); Monocytes % 13.2 %; Neutrophils # 3.22 10^3/uL (1.8-7.7); Neutrophils % 59.7 %; Nucleated Red Blood Cells % 0 %; Platelet Count 221 10^3/cmm (130-400); Red Cell Distribution Width 12.3 % (12.1-15.1); White Blood Count 5.4 10^3/uL (4.0-10.0)
[2021-04-23 03:00] LABS: Alanine Aminotransferase 11 U/L (0-33); Albumin Level 3.8 g/dL (3.5-5.2); Alkaline Phosphatase 84 IU/L (35-105); Anion Gap 12.9 (5-19); Aspartate Amino Transferase 13 U/L (0-32); Blood Urea Nitrogen 10 mg/dL (6-20); Calcium 8.7 mg/dL (8.5-10.5); Carbon Dioxide 23 mmol/L (22-29); Chloride 105 mmol/L (98-107); Creatine Phosphokinase 64 U/L (26-192); Glomerular Filtration Rate 81.6 mL/min (90-130); Glucose 95 mg/dL (65-115); Osmolality Calculated 283 mOsm/kg (285-295); Potassium 3.9 mmol/L (3.5-5.1); Sodium 137 mmol/L (136-145); Total Bilirubin 0.2 mg/dL (0.15-1.2); Total Protein 6.8 g/dL (6.6-8.7)
[2021-04-23 03:41] VITALS: BP 127/84; PULSE 114; RESP 20; TEMP 36.9; O2SAT 98
== END 2021-04-23 03:42 | disposition home or self-care (01) ==
PROVIDERS: Emergency Provider Emergency Medicine; PCP Family Medicine
DX: U07.1 COVID-19 (principal); F17.210 Nicotine dependence, cigarettes, uncomplicated
CPT/HCPCS: 71045; 80053; 82550; 85025; 87426; 99283